=== PATIENT | male | born 1990 ===

== ENCOUNTER 2017-06-02 21:05 | Emergency (ER) | payer SELFPAY ==
[2017-06-02 21:13] VITALS: TEMP 98; O2SAT 98
[2017-06-02] MEDS ORDERED: Sodium Chloride 0.9% 1,000 ML IV STA (21:40)
--- NOTE | 2017-06-02 21:44 | ED PDOC ---
HPI:Nausea, Vomiting, Diarrhea Time Seen by Provider: 06/02/17 21:20 Chief Complaint (Nursing): Abdominal Pain Chief Complaint (Provider): vomiting, diarrhea History Per: Patient History/Exam Limitations: no limitations Onset/Duration Of Symptoms: Days (2) Current Symptoms Are (Timing): Better Quality Of Discomfort: Cramping Additional History Per: Patient Additional Complaint(s): 27 y/o male presents with vomiting, diarrhea x 2 days. Associated generalized abdominal cramping. Patient notes flu-like symptoms one week prior, which have since resolved. Notes diarrhea nad vomiting to have improved today but cramping still present. Denies fever, cough, congestion, chest pain, shortness of breath, blood in stool, urinary symptoms, recent travel. + sick contacts at home. Past Medical History Reviewed: Historical Data, Nursing Documentation, Vital Signs Vital Signs: Last Vital Signs Temp 98 F 06/02/17 21:11 Pulse 91 H 06/02/17 21:11 Resp 16 06/02/17 21:11 BP 165/76 H 06/02/17 21:11 Pulse Ox 98 06/02/17 21:11 - Medical History PMH: Asthma - Family History Family History: States: No Known Family Hx - Immunization History Hx Tetanus Toxoid Vaccination: No Hx Influenza Vaccination: Yes Hx Pneumococcal Vaccination: No - Home Medications Home Medications: Ambulatory Orders Medication Instructions Recorded Cephalexin [Keflex] 2 cap PO BID #14 cap 08/23/13 Ibuprofen [Motrin] 600 mg PO TID PRN #20 tab 08/23/13 Acyclovir 400 mg PO Q8 #15 tab 06/19/14 Ibuprofen [Motrin] 600 mg PO Q6 #20 tab 01/25/16 Dicyclomine [Bentyl] 20 mg PO TID PRN #15 tab 06/03/17 Famotidine [Pepcid] 20 mg PO BID #10 tab 06/03/17 Ondansetron [Zofran] 4 mg PO Q8H PRN #10 tab 06/03/17 - Allergies Allergies/Adverse Reactions: Allergies Allergy/AdvReac Type Severity Reaction Status Date / Time No Known Allergies Allergy Unverified 02/22/13 19:09 Review of Systems ROS Statement: Except As Marked, All Systems Reviewed And Found Negative Gastrointestinal: Positive for: Nausea, Vomiting, Abdominal Pain, Diarrhea Physical Exam - Reviewed Nursing Documentation Reviewed: Yes Vital Signs Reviewed: Yes - Physical Exam Appears: Positive for: Well, Non-toxic, No Acute Distress Head Exam: Positive for: ATRAUMATIC, NORMAL INSPECTION, NORMOCEPHALIC Skin: Positive for: Normal Color Eye Exam: Positive for: Normal appearance ENT: Positive for: Normal ENT Inspection Cardiovascular/Chest: Positive for: Regular Rate, Rhythm Respiratory: Positive for: Normal Breath Sounds Gastrointestinal/Abdominal: Positive for: Bowel Sounds, Soft, Tenderness ( epigastric, LUQ). Negative for: Distended, Guarding, Rebound Back: Positive for: Normal Inspection Extremity: Positive for: Normal ROM Neurologic/Psych: Positive for: Alert, Oriented - Laboratory Results Result Diagrams: 06/02/17 22:00 06/02/17 22:00 - ECG O2 Sat by Pulse Oximetry: 98 - Progress ED Course And Treament: labs, IV fluids, IV pepcid, PO bentyl On re-eval, patient states he is feeling better. Tolerating PO. Patient educated on findings, discharged with rx Zofran, Pepcid, Bentyl. Advised fluids, bland diet. Follow up PMD 2-3 days. Return precautions given. Disposition - Clinical Impression Clinical Impression: Gastroenteritis - Patient ED Disposition Is Patient to be Admitted: No Counseled Patient/Family Regarding: Studies Performed, Diagnosis, Need For Followup, Rx Given - Disposition Referrals: [facility] [Outside] Disposition: Routine/Home Disposition Time: 00:05 Condition: IMPROVED Prescriptions: Dicyclomine [Bentyl] 20 mg PO TID PRN #15 tab PRN Reason: Pain, Mild (1-3) Famotidine [Pepcid] 20 mg PO BID #10 tab Ondansetron [Zofran] 4 mg PO Q8H PRN #10 tab PRN Reason: Nausea/Vomiting Instructions: Gastroenteritis (ED)
[2017-06-02 22:07] LABS: BASO % 0.2 % (0.0-2.0); EOS # 0.1 K/uL (0.0-0.7); EOS % 1.4 % (0.0-4.0); LYMPH % 29.4 % (20.0-40.0); MEAN CORPUSCULAR HEMOGLOBIN 29.9 pg (27.0-31.0); MEAN CORPUSCULAR HGB CONC 34.3 g/dL (33.0-37.0); MEAN PLATELET VOLUME 9.7 fl (7.2-11.7); MONO # 0.7 K/uL (0.0-0.8); MONO % 9.5 % (0.0-10.0); NEUT # 4.1 K/uL (1.8-7.0); NEUT % 59.5 % (50.0-75.0); NRBC % 0.6 % (0.0-0.0); RBC 5.36 Mil/uL (4.40-5.90); RED CELL DISTRIBUTION WIDTH 13.5 % (11.5-14.5); WHITE BLOOD COUNT 6.9 K/uL (4.8-10.8)
[2017-06-02 22:16] LABS: ALBUMIN 4.7 g/dL (3.5-5.0); ALT/SGPT 26 U/L (21-72); AST/SGOT 26 U/L (17-59); BLOOD UREA NITROGEN 18 mg/dl (9-20); GFR AFRICAN-AMERICAN > 60; GFR NON-AFRICAN AMERICAN > 60; LIPASE 59 U/L (23-300)
[2017-06-02 22:42] LABS: ALB/GLOB RATIO 1.3 (1.0-2.1)
[2017-06-02 23:59] LABS: URINE BILIRUBIN NEGATIVE (NEGATIVE); URINE BLOOD NEGATIVE (NEGATIVE); URINE CLARITY SLIGHTY-CLOUDY (Clear); URINE COLOR YELLOW (YELLOW); URINE GLUCOSE (UA) NEG (Normal); URINE LEUKOCYTE ESTERASE NEG Leu/uL (Negative); URINE NITRATE NEGATIVE (NEGATIVE); URINE PROTEIN 30 mg/dL (NEGATIVE); URINE UROBILINOGEN 0.2-1.0 mg/dL (0.2-1.0)
[2017-06-03 01:08] VITALS: BP 144/77; PULSE 80; RESP 18
== END 2017-06-03 00:15 | disposition home or self-care (01) ==
LOC: H.ER 21:05
DX: K52.9 Noninfective gastroenteritis and colitis, unspecified (principal); J45.909 Unspecified asthma, uncomplicated
CPT/HCPCS: 80053; 81003; 83690; 85025; 87804; 96361; 96374; 99283; J7040